=== PATIENT | male | born 1980 | race Caucasian/White ===

== ENCOUNTER 2019-06-23 08:53 | Emergency (ER) | payer BC, OTHER ==
[2019-06-23] MEDS ORDERED: Sodium Chloride 0.9% 10 ML Syringe FLUSH PRN (09:00)
[2019-06-23] MEDS ORDERED: Ketorolac 30 MG/ML SDV IVPUSH ONE (09:01)
[2019-06-23] MEDS ORDERED: HYDROmorphone 1 MG/ML Syringe IVPUSH ONE (09:01)
--- NOTE | 2019-06-23 09:40 | EDM.PDOC ---
ED HPI GENERAL MEDICAL PROBLEM - General Chief Complaint: Back Pain or Injury Stated Complaint: L ARM NUMB/BACK PAIN Time Seen by Provider: 06/23/19 09:00 Source of Information: Reports: Patient History Limitations: Reports: No Limitations - History of Present Illness INITIAL COMMENTS - FREE TEXT/NARRATIVE: The patient presents with left upper back pain. This started about 2 weeks ago. He is not sure what he did to injure his back. 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 This morning he woke up and was trying to put on his socks and he developed sever left upper back pain. He also has some numbness down his left arm. He denies neck pain. He has no weakness in his left arm. He has no fever, chills, cough, chest pain, shortness of breath, abdominal pain, nausea or vomiting. He has never had this happen before. He says it has been worse in the mornings when he wakes up. Onset: Gradual Duration: Week(s): (2) Location: Reports: Back Quality: Reports: Sharp Severity: Severe Improves with: Reports: None Worsens with: Reports: None Associated Symptoms: Reports: No Other Symptoms Left Upper Back Pain Score (Numeric/FACES): 10 - Related Data Allergies Allergy/AdvReac Type Severity Reaction Status Date / Time No Known Allergies Allergy Verified 06/23/19 09:29 Home Meds: Home Meds Cyclobenzaprine [Flexeril] 10 mg PO TID PRN #20 tab 06/23/19 [Rx] Hydrocodone/Acetaminophen [Hydrocodon-Acetaminophen 5-325] 1 - 2 each PO Q6HR PRN #20 tablet 06/23/19 [Rx] Past Medical History - Past Surgical History HEENT Surgical History: Reports: Tonsillectomy Social & Family History - Tobacco Use Smoking Status *Q: Never Smoker - Caffeine Use Caffeine Use: Reports: Coffee, Energy Drinks - Recreational Drug Use Recreational Drug Use: No ED ROS GENERAL - Review of Systems Review Of Systems: See Below Constitutional: Reports: No Symptoms HEENT: Reports: No Symptoms Respiratory: Reports: No Symptoms Cardiovascular: Reports: No Symptoms Endocrine: Reports: No Symptoms GI/Abdominal: Reports: No Symptoms : Reports: No Symptoms Musculoskeletal: Reports: Back Pain (Left upper) ED EXAM, UPPER BACK/NECK PAIN - Physical Exam Exam: See Below Exam Limited By: No Limitations General Appearance: Alert, No Apparent Distress Ears Exam: Normal External Exam Nose Exam: Normal Inspection Head Exam: Atraumatic, Normocephalic Neck Exam: Non-Tender, Normal Alignment, Normal Inspection Cardiovascular/Respiratory: Regular Rate, Rhythm, No M/R/G, Normal Peripheral Pulses, Normal Breath Sounds, No Respiratory Distress GI/Abdominal: Soft, Non-Tender, No Organomegaly, No Mass Back Exam: Other (Pain upon palpation to the left upper back) Extremities: Normal Inspection Neurologic: Other (Numbness to the left arm. Good pulses distally.) Course - Vital Signs Last Recorded V/S: Last Vital Signs Temp 97.6 F 06/23/19 10:37 Pulse 62 06/23/19 10:37 Resp 16 06/23/19 10:37 BP 144/109 H 06/23/19 10:37 Pulse Ox 97 06/23/19 10:37 - Orders/Labs/Meds Orders: Active Orders 24 hr Category Date Time Status Cardiac Monitoring [RC] . DIRECTED Care 06/23/19 09:29 Active Peripheral IV Care [RC] . DIRECTED Care 06/23/19 09:01 Active Sodium Chloride 0.9% [Saline Flush] Med 06/23/19 09:00 Active 10 ml FLUSH ASDIRECTED PRN Peripheral IV Insertion Adult [OM.PC] Routine Oth 06/23/19 09:00 Ordered Medication Orders Sodium Chloride (Saline Flush) 10 ml FLUSH ASDIRECTED PRN PRN Reason: Keep Vein Open Last Admin: 06/23/19 09:10 Dose: 10 ml Labs: Laboratory Tests 06/23/19 06/23/19 06/23/19 Range/Units 09:50 09:50 09:50 WBC 8.89 (4.23-9.07) K/mm3 RBC 5.93 (4.63-6.08) M/mm3 Hgb 17.3 (13.7-17.5) gm/dl Hct 50.0 (40.1-51.0) % MCV 84.3 (79.0-92.2) fl MCH 29.2 (25.7-32.2) pg MCHC 34.6 (32.2-35.5) g/dl RDW Std Deviation 41.3 (35.1-43.9) fL Plt Count 300 (163-337) K/mm3 MPV 9.1 L (9.4-12.3) fl Neut % (Auto) 71.3 H (34.0-67.9) % Lymph % (Auto) 21.7 L (21.8-53.1) % [place] % (Auto) 5.5 (5.3-12.2) % Eos % (Auto) 0.9 (0.8-7.0) Baso % (Auto) 0.3 (0.1-1.2) % Neut # (Auto) 6.33 H (1.78-5.38) K/mm3 Lymph # (Auto) 1.93 (1.32-3.57) K/mm3 [place] # (Auto) 0.49 (0.30-0.82) K/mm3 Eos # (Auto) 0.08 (0.04-0.54) K/mm3 Baso # (Auto) 0.03 (0.01-0.08) K/mm3 D-Dimer, Quantitative < 0.19 L (0.19-0.50) mg/L Sodium 138 (136-145) mEq/L Potassium 4.4 (3.5-5.1) mEq/L Chloride 103 (98-107) mEq/L Carbon Dioxide 23 (21-32) mEq/L Anion Gap 16.4 H (5-15) BUN 20 H (7-18) mg/dL Creatinine 1.0 (0.7-1.3) mg/dL Est Cr Clr Drug Dosing 117.36 mL/min Estimated GFR (MDRD) > 60 (>60) mL/min BUN/Creatinine Ratio 20.0 H (14-18) Glucose 125 H (74-106) mg/dL Calcium 9.6 (8.5-10.1) mg/dL Total Bilirubin 0.6 (0.2-1.0) mg/dL AST 18 (15-37) U/L ALT 34 (16-63) U/L Alkaline Phosphatase 76 (46-116) U/L Total Protein 7.2 (6.4-8.2) g/dl Albumin 3.8 (3.4-5.0) g/dl Globulin 3.4 gm/dL Albumin/Globulin Ratio 1.1 (1-2) Meds: Medications Generic Name Dose Route Start Last Admin Trade Name Freq PRN Reason Stop Dose Admin Sodium Chloride 10 ml 06/23/19 09:00 06/23/19 09:10 Saline Flush FLUSH 10 ml ASDIRECTED PRN Administration Keep Vein Open Discontinued Medications Generic Name Dose Route Start Last Admin Trade Name Nehemiasq PRN Reason Stop Dose Admin Diazepam 5 mg 06/23/19 10:24 06/23/19 10:31 Valium IVPUSH 06/23/19 10:25 5 mg ONETIME ONE Administration Hydromorphone HCl 1 mg 06/23/19 09:01 06/23/19 09:09 Dilaudid IVPUSH 06/23/19 09:02 1 mg ONETIME ONE Administration Hydromorphone HCl 0.5 mg 06/23/19 10:24 06/23/19 10:33 Dilaudid IVPUSH 06/23/19 10:25 0.5 mg ONETIME ONE Administration Ketorolac Tromethamine 30 mg 06/23/19 09:01 06/23/19 09:09 Toradol IVPUSH 06/23/19 09:02 30 mg ONETIME ONE Administration - Re-Assessments/Exams Free Text/Narrative Re-Assessment/Exam: 06/23/19 09:41 I ordered an IV saline lock, labs, thoracic spine x-ray, dilaudid 1mg IV and toradol 30mg IV. 06/23/19 11:28 His x-ray shows mild disc space narrowing scattered within the thoracic spine. More prominent disc narrowing within the lower cervical spine with anterior osteophytes. 3 view thoracic spine study is otherwise unremarkable. He continued to have more pain so I gave him valium and more dialudid. That did help. I will discharge him home with flexeril and hydrocodone and have him follow up with his chiropractor. Departure - Departure Time of Disposition: 11:30 Disposition: Home, Self-Care 01 Condition: Good Clinical Impression: Muscle strain of upper back - Discharge Information *PRESCRIPTION DRUG MONITORING PROGRAM REVIEWED*: No *COPY OF PRESCRIPTION DRUG MONITORING REPORT IN PATIENT JOVANI: No Prescriptions: Hydrocodone/Acetaminophen [Hydrocodon-Acetaminophen 5-325] 1 - 2 each PO Q6HR PRN #20 tablet PRN Reason: Pain Cyclobenzaprine [Flexeril] 10 mg PO TID PRN #20 tab PRN Reason: Pain Referrals: PCP,None [Primary Care Provider] - Forms: ED Department Discharge Additional Instructions: Take motrin or aleve for pain. If that does not help take the flexeril and hydrocodone for pain. Do not drive or operate heavy machinery when taking those medications. Follow up with your doctor and chiropractor. Please return if you are worse. Sepsis Event Note - Evaluation Sepsis Screening Result: No Definite Risk - Focused Exam Vital Signs: Vital Signs Temp Pulse Resp BP Pulse Ox 06/23/19 10:37 97.6 F 62 16 144/109 H 97 06/23/19 08:57 97.2 F 75 20 127/113 H 100 Date Exam was Performed: 06/23/19 Time Exam was Performed: 11:28 - My Orders Last 24 Hours: My Active Orders 06/23/19 09:00 Sodium Chloride 0.9% [Saline Flush] 10 ml FLUSH ASDIRECTED PRN Peripheral IV Insertion Adult [OM.PC] Routine 06/23/19 09:01 Peripheral IV Care [RC] . DIRECTED 06/23/19 09:29 Cardiac Monitoring [RC] . DIRECTED - Assessment/Plan Last 24 Hours: My Active Orders 06/23/19 09:00 Sodium Chloride 0.9% [Saline Flush] 10 ml FLUSH ASDIRECTED PRN Peripheral IV Insertion Adult [OM.PC] Routine 06/23/19 09:01 Peripheral IV Care [RC] . DIRECTED 06/23/19 09:29 Cardiac Monitoring [RC] . DIRECTED
--- NOTE | 2019-06-23 10:11 | CR ---
Thoracic spine: AP, lateral and swimmer's views of the thoracic spine were obtained. Disc space narrowing and anterior osteophytes are noted within the lower cervical spine. Disc spaces within the thoracic spine shows minimal scattered narrowing. Pedicles are intact. No subluxation or fracture is seen. Impression: 1. Mild disc space narrowing scattered within the thoracic spine. 2. More prominent disc space narrowing within the lower cervical spine with anterior osteophytes. 3. 3 view thoracic spine study is otherwise unremarkable. Diagnostic code #2 Study was dictated in MDT
[2019-06-23] MEDS ORDERED: HYDROmorphone 0.5 MG/0.5 ML Syringe IVPUSH ONE (10:24)
== END 2019-06-23 11:44 | disposition home or self-care (01) ==
LOC: JD.ED 08:53
DX: S29.012A Strain of muscle and tendon of back wall of thorax, initial encounter (principal); X58.XXXA Exposure to other specified factors, initial encounter
CPT/HCPCS: 36415; 72070; 72070-26; 80053; 85025; 85379; 96374; 96375; 96376; 99284-25; J1170; J1885; J3360

== ENCOUNTER 2020-12-03 11:53 | Emergency (ER) | payer BC ==
[2020-12-03] MEDS ORDERED: HYDROmorphone 1 MG/ML Syringe IM ONE (12:27)
[2020-12-03] MEDS ORDERED: Ketorolac 60 MG/2 ML SDV IM ONE (12:27)
--- NOTE | 2020-12-03 12:43 | EDM.PDOC ---
ED HPI GENERAL MEDICAL PROBLEM - General Chief Complaint: Back Pain or Injury Stated Complaint: BACK PAIN Time Seen by Provider: 12/03/20 12:13 Source of Information: Reports: Patient, Family, RN Notes Reviewed - History of Present Illness INITIAL COMMENTS - FREE TEXT/NARRATIVE: Patient is a 40-year-old male presenting to the emergency department with complaints of worsening of his chronic back pain. Reports injured his back in 2019. He has had MRIs done which showed bulging disks at T4 and T5. There was discussion of surgery, however he has decided to try to let it heal. He had cortisone injection in July which she states did help significantly. Over the last week to 2 weeks he is had gradually worsening pain. Reports he is been having to take Tylenol and ibuprofen more than normal. Upon waking this morning, pain had worsened significantly. He has not fallen or injured his back recently. He took a dose of ibuprofen and a Flexeril this morning with little to no relief. Back Pain Score (Numeric/FACES): 10 - Related Data Allergies Allergy/AdvReac Type Severity Reaction Status Date / Time No Known Allergies Allergy Verified 12/03/20 12:15 Home Meds: Home Meds Hydrocodone/Acetaminophen [Hydrocodone-Acetamin 5-325 mg] 1 - 2 each PO Q4H PRN #16 tablet 12/03/20 [Rx] Naproxen [Naprosyn] 500 mg PO Q12HR 5 Days #10 tab 12/03/20 [Rx] Past Medical History Genitourinary History: Reports: Renal Calculus Musculoskeletal History: Reports: Other (See Below) Other Musculoskeletal History: chronic back pain - Past Surgical History HEENT Surgical History: Reports: Tonsillectomy Social & Family History - Tobacco Use Tobacco Use Status *Q: Never Tobacco User Second Hand Smoke Exposure: No - Caffeine Use Caffeine Use: Reports: Coffee, Energy Drinks, Soda - Recreational Drug Use Recreational Drug Use: No ED ROS GENERAL - Review of Systems Review Of Systems: Comprehensive ROS is negative, except as noted in HPI. ED EXAM, UPPER BACK/NECK PAIN - Physical Exam Exam: See Below Exam Limited By: No Limitations General Appearance: Alert, Mild Distress, Other (Pacing) Cardiovascular/Respiratory: Regular Rate, Rhythm, No M/R/G, Normal Peripheral Pulses, No JVD, Normal Breath Sounds, No Respiratory Distress Back Exam: Normal Inspection, Paraspinal Tenderness (Bilateral to T3-T6), Vertebral Tenderness (T3-T6) Neurologic: video game developer II-XII nml As Tested, No Motor/Sensory Deficits, Alert, Normal Mood/Affect, Oriented x 3 Psychiatric: Normal Affect, Normal Mood Skin Exam: Normal Color, Warm/Dry Course - Vital Signs Last Recorded V/S: Last Vital Signs Temp 97.0 F 12/03/20 12:13 Pulse 92 12/03/20 12:13 Resp 20 12/03/20 12:13 BP 120/103 H 12/03/20 12:13 Pulse Ox 100 12/03/20 12:13 - Orders/Labs/Meds Orders: Active Orders 24 hr Category Date Time Status Acetaminophen/HYDROcodone [Fox 325-5 MG] Med 12/03/20 13:36 Once 2 tab PO ONETIME ONE Meds: Medications Discontinued Medications Generic Name Dose Route Start Last Admin Trade Name Freq PRN Reason Stop Dose Admin Hydromorphone HCl 1 mg 12/03/20 12:27 12/03/20 12:48 Hydromorphone 1 Mg/Ml Syringe IM 12/03/20 12:28 1 mg ONETIME ONE Administration Ketorolac Tromethamine 60 mg 12/03/20 12:27 12/03/20 12:48 Ketorolac 60 Mg/2 Ml Sdv IM 12/03/20 12:28 60 mg ONETIME ONE Administration - Re-Assessments/Exams Free Text/Narrative Re-Assessment/Exam: Patient is a 40-year-old male presenting to the emergency department with complaints of worsening of his chronic upper back pain. He has had no new injury. Took ibuprofen earlier this morning with little relief. On exam, he has paraspinal and vertebral tenderness T3-T6. This is the area that corresponds with his bulging disks. I have ordered Dilaudid 1 mg IM and Toradol 60 mg IM. He took Flexeril prior to coming to ER. 12/03/20 13:38 Patient had some relief with the medications given. I will give 2 hydrocodone with Tylenol. We will discharge him home with prescription for Naprosyn and hydrocodone with Tylenol. Recommend contacting his back specialist tomorrow to discuss cortisone injection. If symptoms do not improve in the next few days, follow-up in the clinic. Return to ER as needed. Departure - Departure Time of Disposition: 13:39 Disposition: Home, Self-Care 01 Condition: Good Clinical Impression: Chronic back pain Qualifiers: Back pain location: thoracic back pain Back pain laterality: midline Qualified Code(s): M54.6 - Pain in thoracic spine; G89.29 - Other chronic pain - Discharge Information *PRESCRIPTION DRUG MONITORING PROGRAM REVIEWED*: Yes *COPY OF PRESCRIPTION DRUG MONITORING REPORT IN PATIENT JOVANI: No Prescriptions: Hydrocodone/Acetaminophen [Hydrocodone-Acetamin 5-325 mg] 1 - 2 each PO Q4H PRN #16 tablet PRN Reason: Pain Naproxen [Naprosyn] 500 mg PO Q12HR 5 Days #10 tab Instructions: Managing Chronic Back Pain Referrals: Lynnette Garcia NP [Primary Care Provider] - Forms: ED Department Discharge Additional Instructions: You were seen in the emergency department today for worsening of your chronic back pain. While in the ER, you received Toradol, Dilaudid, and hydrocodone with Tylenol for pain. Prescription has been sent for Naprosyn and hydrocodone with Tylenol. Take these medications as prescribed. Do not take ibuprofen in addition to these. You may take additional Tylenol if needed, however he should ensure they do not take more than 4000 mg of Tylenol from all sources in a 24- hour period. Recommend contacting your back specialist tomorrow to discuss cortisone injection. If symptoms fail to improve over the next few days, recommend follow-up with your primary care provider. Return to ER as needed. Sepsis Event Note (ED) - Focused Exam Vital Signs: Vital Signs Temp Pulse Resp BP Pulse Ox 12/03/20 12:13 97.0 F 92 20 120/103 H 100 - My Orders Last 24 Hours: My Active Orders 12/03/20 13:36 Acetaminophen/HYDROcodone [Fox 325-5 MG] 2 tab PO ONETIME ONE - Assessment/Plan Last 24 Hours: My Active Orders 12/03/20 13:36 Acetaminophen/HYDROcodone [Fox 325-5 MG] 2 tab PO ONETIME ONE
[2020-12-03] MEDS ORDERED: Acetaminophen/HYDROcodone 325-5 MG Tab PO ONE (13:36)
== END 2020-12-03 13:30 | disposition home or self-care (01) ==
LOC: JD.ED 11:53
DX: G89.29 Other chronic pain (principal); M54.6 Pain in thoracic spine
CPT/HCPCS: 96372; 99283; A9270; J1170; J1885